=== PATIENT | female | born 1940 | race Caucasian/White ===

== ENCOUNTER → 2016-08-15 09:11 | Outpatient (CLI) | payer MEDICARE, OTHER | END | disposition home or self-care (01) | LOC: D.RAD 09:11 | DX: K21.9 Gastro-esophageal reflux disease without esophagitis (principal); K44.9 Diaphragmatic hernia without obstruction or gangrene ==

== ENCOUNTER 2018-05-31 08:13 | Emergency (ER) | payer OTHER ==
[~2018-05-31] VITALS: Ht 152.4 cm; Wt 63.6 kg
[2018-05-31 08:15] VITALS: Ht 152.4 cm; Wt 63.6 kg
[2018-05-31] MEDS ORDERED: [UNRECOGNIZED DRUG - REMARK] (08:16)
[2018-05-31] MEDS ORDERED: GABAPENTIN100 MG (08:16)
[2018-05-31] MEDS ORDERED: BAYER CHEWABLE81 MG (08:16)
[2018-05-31 09:46] VITALS: BP 121/74
== END 2018-05-31 09:47 | disposition home or self-care (01) ==
LOC: D.ER 08:13
DX: S01.01XA Laceration without foreign body of scalp, initial encounter (principal); W18.30XA Fall on same level, unspecified, initial encounter; Y93.89 Activity, other specified; Y92.238 Other place in hospital as the place of occurrence of the external cause; I10 Essential (primary) hypertension

== ENCOUNTER → 2019-01-21 13:22 | Outpatient (CLI) | payer MEDICARE ==
[2018-05-31 08:15] VITALS: BMI 27.3
[~2019-01-21 13:22] MED LIST: BAYER CHEWABLE81 MG; GABAPENTIN100 MG; [UNRECOGNIZED DRUG - REMARK]
== END | disposition home or self-care (01) ==
LOC: D.HCCARDIO 13:22
PROVIDERS: ATTEND Internal Medicine Cardiovascular Disease
DX: I10 Essential (primary) hypertension (principal)

== ENCOUNTER → 2020-01-31 10:40 | Outpatient (CLI) | payer MEDICARE ==
[2018-05-31 08:15] VITALS: BMI 27.3
== END | disposition home or self-care (01) ==
LOC: D.HCCECHO 10:40
PROVIDERS: ATTEND Internal Medicine Cardiovascular Disease
DX: I35.1 Nonrheumatic aortic (valve) insufficiency (principal)